=== PATIENT | female | born 1955 | race Caucasian/White ===

== ENCOUNTER 2018-09-22 17:17 | Inpatient (IN) | payer SELFPAY ==
[~2018-09-22] VITALS: Ht 165.1 cm; Wt 94.3 kg
[2018-09-22 19:04] LABS: BASOPHILS % 0.6 % (0.0-2.0); EOSINOPHILS % 4.1 % (0.0-5.0); HEMATOCRIT. 34.1 % (36.0-48.0); HEMOGLOBIN. 11.4 g/dL (12.0-16.0); MEAN CORPUSCULAR HEMOGLOBIN 28.7 pg (28.0-32.0); MEAN CORPUSCULAR VOLUME 85.5 fL (81.0-99.0); MEAN PLATELET VOLUME 7.7 fl (7.4-10.4); MONOCYTES % 5.2 % (2.0-8.0); NEUTROPHILS % 66.1 % (40.0-76.0); PLATELET 338 x1000/uL (130-400); RED BLOOD CELL COUNT 3.98 mill/uL (4.2-5.4)
[2018-09-22 19:07] LABS: CHLORIDE 107 mEq/L (98-107)
[2018-09-22 19:22] LABS: PARTIAL THROMBOPLASTIN TIME 27.5 sec (23.4-31.0); PROTHROMBIN TIME 9.9 sec (9.6-11.0)
[2018-09-22] MEDS ORDERED: LEVOTHYROXINE SODIUM 150MCG TABLET PO ONE (23:30)
[2018-09-23 02:43] VITALS: BP 143/63
[2018-09-23 02:45] VITALS: BP 143/65
[2018-09-23] MEDS ORDERED: ONDANSETRON HCL 4MG/2ML INJ IV PRN (04:15)
[2018-09-23] MEDS ORDERED: CLONIDINE 0.1MG TABLET PO PRN (04:15)
[2018-09-23] MEDS ORDERED: ENOXAPARIN 40MG/0.4ML SYR SUBCUT SCH (04:15)
[2018-09-23] MEDS ORDERED: HYDROCODONE/ACETAMINOPHEN 5/325MG TABLET PO PRN (04:15)
[2018-09-23 08:00] VITALS: BP 147/62
[2018-09-23] MEDS: ENOXAPARIN 30MG/0.3ML SYR SUBCUT SCH ×2 (08:33→21:19)
[2018-09-23] MEDS: ACETAMINOPHEN 325MG TABLET PO PRN (08:58)
[2018-09-23 12:00] VITALS: BP 142/62
[2018-09-23] MEDS ORDERED: INFLUENZA VIRUS VACCINE(AFLURIA) 0.5ML SYR IM ONE (12:00)
[2018-09-23] MEDS ORDERED: PNEUMOCOCCAL 23-VAL P-SAC VAC 0.5 ML IM ONE (12:00)
[2018-09-23 16:00] VITALS: BP 160/57
[2018-09-23 19:57] VITALS: BP 115/52
[2018-09-23] MEDS: AMLODIPINE 5MG TABLET PO SCH (21:00)
[2018-09-23] MEDS: MAGNESIUM/ALUMINUM HYDROXIDE/SIMETHICONE 30ML UDC PO PRN (21:20)
[2018-09-24 00:02] VITALS: BP 115/59
[2018-09-24] MEDS: ACETAMINOPHEN 325MG TABLET PO PRN (01:08)
[2018-09-24 04:07] VITALS: BP 132/52
[2018-09-24] MEDS ORDERED: LEVOTHYROXINE SODIUM 125MCG TABLET PO SCH (07:20)
[2018-09-24 07:41] LABS: BASOPHILS % 0.7 % (0.0-2.0); EOSINOPHILS % 5.1 % (0.0-5.0); HEMATOCRIT. 34.9 % (36.0-48.0); HEMOGLOBIN. 11.4 g/dL (12.0-16.0); LYMPHOCYTES % 27.5 % (20.0-50.0); MEAN CORPUSCULAR HEMOGLOBIN 28.1 pg (28.0-32.0); MEAN CORPUSCULAR VOLUME 86.3 fL (81.0-99.0); MEAN PLATELET VOLUME 8.5 fl (7.4-10.4); MONOCYTES % 5.2 % (2.0-8.0); NEUTROPHILS % 61.5 % (40.0-76.0); PLATELET 318 x1000/uL (130-400); RED BLOOD CELL COUNT 4.04 mill/uL (4.2-5.4); RED CELL DISTRIBUTION WIDTH 15.2 % (11.6-14.6)
[2018-09-24 08:00] VITALS: BP 140/36
[2018-09-24 08:23] LABS: CHLORIDE 104 mEq/L (98-107)
[2018-09-24] MEDS: AMLODIPINE 5MG TABLET PO SCH (10:08)
[2018-09-24] MEDS: ENOXAPARIN 30MG/0.3ML SYR SUBCUT SCH (10:09)
[2018-09-24] MEDS: MAGNESIUM/ALUMINUM HYDROXIDE/SIMETHICONE 30ML UDC PO PRN (10:13)
[2018-09-24 12:45] VITALS: BP 114/43
[2018-09-24 16:49] VITALS: BP 125/63
[2018-09-24 16:57] VITALS: BP 122/55
== END 2018-09-24 18:00 | disposition home or self-care (01) | DRG 199 ==
LOC: ER 17:17 → 6WST 23:37 → EDBEDREQ 23:43 → EDBEDREQTM 23:43 → ENRESERV 09-23 01:35
PROVIDERS: ADMIT Family Medicine Adult Medicine; ATTEND Family Medicine Adult Medicine
DX: I10 Essential (primary) hypertension (principal); E11.40 Type 2 diabetes mellitus with diabetic neuropathy, unspecified; E89.0 Postprocedural hypothyroidism; E05.90 Thyrotoxicosis, unspecified without thyrotoxic crisis or storm; E66.01 Morbid (severe) obesity due to excess calories; R00.1 Bradycardia, unspecified; E11.65 Type 2 diabetes mellitus with hyperglycemia; Z59.9 Problem related to housing and economic circumstances, unspecified; Z91.14 Patient's other noncompliance with medication regimen; Z98.891 History of uterine scar from previous surgery; Z68.34 Body mass index [BMI] 34.0-34.9, adult
CPT/HCPCS: 36415; 71045; 73502; 80048; 80061; 82533; 83036; 83735; 83880; 84100; 84439; 84443; 84480; 84484; 90686; 90732; 93005; 93306; 93971; 96372; 97162; 97165; 99285; J1650

== ENCOUNTER 2018-10-09 00:12 | Emergency (ER) | payer SELFPAY ==
[~2018-10-09] VITALS: Ht 160 cm; Wt 82.0 kg
[2018-10-09] MEDS ORDERED: IBUPROFEN 600MG TABLET PO STA (03:04)
[2018-10-09 03:25] LABS: CLARITY URINE CLEAR (CLEAR); COLOR URINE YELLOW (YELLOW); KETONES URINE NEGATIVE (NEGATIVE); LEUKOCYTE ESTERASE URINE NEGATIVE (NEGATIVE); NITRITE URINE NEGATIVE (NEGATIVE); OCCULT BLOOD URINE NEGATIVE (NEGATIVE); PH URINE 5.5 (4.5-8.0); PROTEIN URINE NEGATIVE (NEGATIVE); SPECIFIC GRAVITY URINE 1.013 (1.005-1.030); UROBILINOGEN URINE 0.2 E.U./dL (0.2-1.0)
[2018-10-09 04:30] VITALS: BP 134/67
== END 2018-10-09 04:32 | disposition home or self-care (01) ==
LOC: ER 00:12
DX: R51 Headache (principal); M60.9 Myositis, unspecified; R50.9 Fever, unspecified; Z86.39 Personal history of other endocrine, nutritional and metabolic disease
CPT/HCPCS: 99283